=== PATIENT | female | born 1990 | race Caucasian/White ===

== ENCOUNTER 2023-07-07 08:08 | Day surgery (SDC) | payer OTHER ==
[2023-07-05 11:58] VITALS: BMI 25.8
[2023-07-07] MEDS ORDERED: PROPOFOL 20 ML ONE ×2 (10:11→11:33)
[2023-07-07] MEDS ORDERED: LIDOCAINE HCL/PF 2% SDV 5ML VIAL ONE (10:11)
[2023-07-07] MEDS ORDERED: MIDAZOLAM HCL 2 MG/2 ML SINGLE DOSE VIAL ONE (10:11)
[2023-07-07] MEDS ORDERED: ceFAZolin SODIUM 1 GM VIAL ONE (11:22)
[2023-07-07] MEDS ORDERED: DEXAMETHASONE SOD PHOSPHATE 4 MG/1 ML VIAL ONE (11:22)
[2023-07-07] MEDS ORDERED: KETOROLAC TROMETHAMINE 30 MG/1 ML VIAL ONE (12:04)
[2023-07-07] MEDS ORDERED: ONDANSETRON 4 MG/2 ML VIAL ONE (12:04)
[2023-07-07] MEDS ORDERED: ACETAMINOPHEN 1000 MG/100 ML BAG IVPB ONE (12:46)
[2023-07-07] MEDS ORDERED: PROMETHAZINE HCL 25 MG/1 ML VIAL IVPB PRN (12:46)
[2023-07-07] MEDS ORDERED: oxyCODONE HCL 5 MG TABLET PO PRN ×2 (12:46)
[2023-07-07] MEDS ORDERED: ONDANSETRON 4 MG/2 ML VIAL IVPUSH PRN (12:46)
[2023-07-07] MEDS ORDERED: FENTANYL CITRATE/PF 50 MCG/ML VIAL ONE ×2 (12:51→13:17)
[2023-07-07] MEDS ORDERED: LACTATED RINGERS SOLUTION 1,000 ML IV SCH (13:00)
[2023-07-07 14:14] VITALS: RESP 19; TEMP 97.2
[2023-07-07 14:20] VITALS: BP 118/78; PULSE 81
== END 2023-07-07 14:10 | disposition home or self-care (01) ==
LOC: FASU 08:08
PROVIDERS: ATTEND Orthopaedic Surgery Sports Medicine
PROC: 0SBD4ZZ Excision of Left Knee Joint, Percutaneous Endoscopic Approach (ICD-10-PCS; principal; 2023-07-07 11:33)
DX: M65.862 Other synovitis and tenosynovitis, left lower leg (principal)
CPT/HCPCS: 81025; 87070; 87075; 87102; 87116; 87205; 87206; 87210; 88305-TC; 94760